=== PATIENT | male | born 1975 ===

== ENCOUNTER → 2017-12-20 19:38 | Outpatient (REF) | payer BC, SELFPAY ==
[2017-12-20 19:56] LABS: Cholesterol 163 mg/dL (140-199); HDL Cholesterol 42 mg/dL (40-60); LDL Cholesterol Calculated 104 mg/dL (<100); Triglycerides 83 mg/dL (35-150); Uric Acid 5.9 mg/dL (3.5-8.5)
== END ==
LOC: LAB 19:38
PROVIDERS: Visit Provider Family Medicine
DX: Z13.6 Encounter for screening for cardiovascular disorders (principal); M79.676 Pain in unspecified toe(s)
CPT/HCPCS: 36415; 80061; 84550

== ENCOUNTER → 2018-02-19 19:47 | Outpatient (REF) | payer BC, SELFPAY ==
[2018-02-19 20:26] LABS: Uric Acid 7.3 mg/dL (3.5-8.5)
== END ==
LOC: LAB 19:47
PROVIDERS: Visit Provider Family Medicine
DX: M10.9 Gout, unspecified (principal)
CPT/HCPCS: 84550

== ENCOUNTER → 2018-04-26 19:03 | Outpatient (REF) | payer BC, SELFPAY ==
[2018-04-26 19:51] LABS: Uric Acid 6.1 mg/dL (3.5-8.5)
== END ==
LOC: LAB 19:03
PROVIDERS: Visit Provider Family Medicine
DX: M10.9 Gout, unspecified (principal)
CPT/HCPCS: 36415; 84550